=== PATIENT | male | born 1955 | race Caucasian/White ===

== ENCOUNTER 2016-07-01 11:39 | Inpatient (IN) | payer BC ==
--- NOTE | ~2016-07-01 | CN ---
Consultation Report [facility] [address] [place]. [address] NAME: JUAN GAY : 55 STATUS : ADM Heather PAT#: [id number] AGE: 61 ADM/REG DATE : 07/01/16 MR#: [id number] REPORT SERV DATE: 07/01/16 DICTATED BY: PAOLO AL DATE: 07/01/16 REPORT STATUS : Draft TRANSCRIBED BY: MODL DATE: 07/01/16 CONSULT DATE OF CONSULTATION: REASON: Volume overload and chronic kidney disease. HISTORY OF PRESENT ILLNESS: This is a very pleasant 61-year-old male patient, followed in our office by Dr. Suad Samuel. He was seen today in followup by Henrietta Villatoro, nurse practitioner, and has had a recent increase in diuretic burden. He is known to have a cirrhotic liver and has difficulty maintaining a reasonable diuresis. The patient has, over the last [id number] weeks, had worsening lower extremity edema extending from his feet distally up to his knees. He was recently increased on his torsemide but has continued to have worsening lower extremity edema to the point of painful ambulation. The patient's edema does not extend into his thighs, abdomen, nor groin area. He has recently seen Dr. Kurnal Elizabeth in followup whom he follows for his cirrhosis. The only modification undertaken at that recent followup, according the patient, was a modification of his lactulose coverage. The patient has also had some recent difficulty with a worsening cancer diagnosis of his 's. The patient states that her known cancer has metastasized to other areas and her long-term prognosis is poor. She has had recent followups and evaluations in the outpatient setting. On the days of appointments, the patient has reluctantly held his diuretics as well as his lactulose due to obvious needs for restrooms during treatment phases with these medications. He is lying in bed, awake, in a stretcher this afternoon, awake, alert and oriented. No complaints of chest pain. No nausea, vomiting, or diarrhea. PAST MEDICAL HISTORY: Positive for chronic kidney disease stage 3, followed by Dr. Suad Samuel. Baseline creatinine appears to be approximately 1.4 to 1.8. Most recent creatinine on 07/01/2016, at 2.3 with a GFR of 31 mL/minute. History is also positive for cirrhosis of the liver, followed by Dr. Krunal Elizabeth with recent followup approximately two weeks ago with modification of the lactulose pattern according to the patient. History is also significant for bicuspid aortic defect, gout, left chronic knee pains, diabetes mellitus x15 years, depression, anemia hypertension, obstructive sleep apnea with CPAP usage, hyperlipidemia, chronic bilateral pedal edema, history of hematuria, colon polyps, and some unnamed genetic heart disease. He has also required frequent blood transfusions and now has a Rh positive lab test according to previous documentation in September 2015. REVIEW OF SYSTEMS: Completed. Please see HPI for pertinent details. SOCIAL HISTORY: No ETOH. No illicit drugs. Remote tobacco use by history. FAMILY HISTORY: Noncontributory and not reviewed during this consultation and dictation. HOME MEDICATIONS: Currently unavailable as they have not gathered by Pharmacy. Consultation Report [place] [id number] [facility] [place]. [address] NAME: JUAN GAY : 55 STATUS : ADM Heather PAT#: [id number] AGE: 61 ADM/REG DATE : 07/01/16 MR#: [id number] REPORT SERV DATE: 07/01/16 DICTATED BY: PAOLO AL DATE: 07/01/16 REPORT STATUS : Draft TRANSCRIBED BY: NICHELLE DATE: 07/01/16 ALLERGIES: CURRENTLY UNAVAILABLE THEY HAVE NOT GATHERED BY PHARMACY. PHYSICAL EXAMINATION: VITAL SIGNS: Blood pressure 146/66, he is 99% on room air, heart rate is 77 beats per minute and regular, respiratory rate as at 18, and temperature is at 99.2. GENERAL: He is awake, alert, and oriented x3. No acute distress, lying in bed during evaluation. HEENT: Normocephalic and atraumatic. Normal ocular movements. No scleral icterus. No conjunctival pallor is appreciated. NECK: Supple without thyromegaly. No JVD. CHEST: Shows positive S1 and S2. No rubs or gallops. LUNGS: Clear to auscultation throughout with normal expansion and effort bilaterally. GI: Shows a rounded obese abdomen, nonfirm. No overt evidence of ascites to examination. : Examination is deferred. EXTREMITIES: Show positive pulses to all four extremities. He has 2+ to 3+ bilateral lower extremity edema extending proximally from his feet to his knees, some redness to his lower extremities but no certain signs of cellulitis or infection. NEUROLOGIC: He appears to be grossly intact. Nonfocal. SKIN: Warm, dry, and intact to visualized surfaces. No rash, lesions, or ecchymosis. He does have some redness to his lower extremities as listed above. PSYCHIATRIC: He is of appropriate mood and affect. LABORATORY DATA: Pertinent laboratories and imaging to this evaluation, laboratories at [facility] currently remain pending with the exception of his albumin at 2.7, direct bilirubin at 1.6, indirect at 1.3, alkaline phos of 277, ALT and AST 23 and 42, total protein 7.6. Remainder of his labs have come from his office visit today at [facility] with creatinine at 2.3, GFR of 31 mL/minute, sodium 140, potassium 3.2, chloride 95, glucose 159, calcium 9.0, phosphorus 4.4, and BUN is 77.3. Previous urinalysis would indicate that he has been negative for proteinuria in November and December of 2015. Previous urinalysis in August 2015 did elicit 1+ proteinuria. Yppralj-gf-memgongfwy ratio, most recently quantified 06/24/2016, at 0.482 deciliters. IMPRESSION AND PLAN: This is a chronic kidney disease stage 3 patient with known cirrhotic liver difficulty with volume overload with worsening diuretic burden over the last two-to- three weeks with intermittent compliance with treatment due to recent medical issues with his . He has failed p.o. diuretic attempts in the outpatient setting and is now admitted with the assistance of the hospitalist service to [facility] for assistance with diuresis rather. We will provide assistance with IV Bumex pulse dosing as well as albumin to assist in mobilization of the fluid as his albumin is significantly depressed. He has recently seen Dr. Krunal Elizabeth and has not had recent modification of treatment or worsening symptoms and I do not see clinical reasoning to request Dr. Elizabeth's evaluation at this point. Place him on strict I's and O's and daily weights. Follow them closely with serial laboratories and modify treatment plan based on the clinical presentation, patient laboratory results, further consultation with renal attending. We appreciate the assistance of the Hospitalist Service in augmenting care and providing assistance with this patient. Consultation Report [facility] [address] [place]. [address] NAME: JUAN GAY : 55 STATUS : ADM Heather PAT#: [id number] AGE: 61 ADM/REG DATE : 07/01/16 MR#: [id number] REPORT SERV DATE: 07/01/16 DICTATED BY: PAOLO AL DATE: 07/01/16 REPORT STATUS : Draft TRANSCRIBED BY: NICHELLE DATE: 07/01/16 DICTATED BY: Juan Ramon Overton NP JR/NICHELLE Paolo Al M.D. / [id number] CC: Juan Marquez Jr, MD
--- NOTE | ~2016-07-01 | DS ---
Discharge Summary [facility] [address] [facility] [place]. [address] NAME: ROSEMARY GAY : 55 STATUS : DIS IN PAT#: [id number] AGE: 61 ADM/REG DATE : 07/01/16 MR#: [id number] REPORT SERV DATE: 07/03/16 DICTATED BY: TALISHA WELLS DATE: 07/03/16 REPORT STATUS : Draft TRANSCRIBED BY: MODL DATE: 07/03/16 ADMISSION DATE: 07/01/2016 DISCHARGE DATE: 07/03/2016 CONSULTANTS: Dr. Pilo Al, Nephrology. DISCHARGE DIAGNOSES: 1. Volume overload. 2. Nonalcoholic steatohepatitis with previous history of hepatic encephalopathy and pancytopenia currently. 3. Acute kidney injury, superimposed on stage 3 chronic kidney disease. 4. History of bicuspid aortic valve. 5. Diabetes mellitus type 2 with last A1c of 7.2% on 02/2016. 6. Solitary kidney. 7. History of major depression. 8. Obesity with body mass index of 39.7. 9. Obstructive sleep apnea, on nocturnal CPAP. 10.History of gout. 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 Suad Samuel and there was concern that his leg edema was significantly worse, so they recommended he come into the hospital for inpatient IV diuretics. The patient was admitted to our inpatient service and placed on a 2 g sodium diet. He tells me that he follows an extremely low sodium diet at home. I talked with him about the importance of doing daily weight. I told him to contact his kidney or liver specialists if his weight goes up more than 4 pounds in two days. He was given albumin and Lasix intravenously, then Bumex intravenously. He had potassium replacement as needed. Nephrology thinks he is improved enough and I agree his peripheral edema is significantly better. They have advised addition of spironolactone 50 mg daily, and to use his metolazone only on a p.r.n. basis, and to follow up at their office on Thursday or Thursday the week following his discharge. He is ambulatory. No shortness of breath. He is clear mentally. He is calm, well oriented, no asterixis that I can witness. DISCHARGE MEDICATIONS: Allopurinol 300 mg daily, Demadex 100 mg twice a day, metolazone 5 mg daily only to be taken if he has significantly worsened leg edema, vitamin D 1000 units daily, iron sulfate 325 mg t.i.d., Flonase nasal spray daily, he uses a NovoLog sliding scale at home, he uses Toujeo SoloStar 12 units at bedtime, lactulose 30 mL q.i.d., omeprazole 20 mg daily, rifaximin 550 mg b.i.d., Zoloft 50 mg daily, spironolactone 50 mg daily, KCl 20 mEq p.o. daily, Tylenol he takes 500 mg once a day p.r.n. I spent 32 minutes today with the patient and with his discharge plan. Discharge Summary [address] [address] NAME: ROSEMARY GAY : 55 STATUS : DIS IN PAT#: [id number] AGE: 61 ADM/REG DATE : 07/01/16 MR#: [id number] REPORT SERV DATE: 07/03/16 DICTATED BY: TALISHA WELLS DATE: 07/03/16 REPORT STATUS : Draft TRANSCRIBED BY: NICHELLE DATE: 07/03/16 [facility]/NICHELLE Talisha Wells M.D. / [id number] CC: Heath Sanchez MD Lindsay C Crawford, M.D. Chirag Patel, M.D.
--- NOTE | ~2016-07-01 | HP ---
History And Physical [place] [place]. [address] NAME: JUAN GAY : 55 STATUS : ADM Heather PAT#: [id number] AGE: 61 ADM/REG DATE : 07/01/16 MR#: [id number] REPORT SERV DATE: 07/01/16 DICTATED BY: CHELSY DYER DATE: 07/01/16 REPORT STATUS : Draft TRANSCRIBED BY: MODByron DATE: 07/01/16 DATE OF ADMISSION: 07/01/2016 CHIEF COMPLAINT: Lower extremity edema. HISTORY OF PRESENT ILLNESS: The patient is a very pleasant 61-year-old white male. He has a long-standing history of cirrhosis secondary to nonalcoholic steatohepatitis. He also has a history of CKD with baseline creatinine running about 1.5 to 1.8. The patient apparently had some increase in his lower extremity edema. He was seen in the [facility] approximately 1 week ago. He had his Demadex increased from 80 to 100 mg b.i.d. and metolazone was added. He lost about 7 pounds but continued to have lower extremity edema. He went in today for followup. His creatinine had gone from 1.5 to 2.3 and they recommended he proceed to the ER for admission. He is not really having any other issues. Just prior to the onset of his increased edema, he had been holding his diuretics to take his to the doctor and various appointments as she is suffering from terminal breast cancer. He also was on an increased dose of lactulose just prior to the onset of increased edema when they cut his lactulose in half. He states his fluid started to accumulate more significantly. He does not have any other complaints today, really just the lower extremity edema. PAST MEDICAL HISTORY: 1. CKD, baseline creatinine 1.5 to 1.8. 2. Bicuspid aortic valve. 3. Cirrhosis secondary to nonalcoholic steatohepatitis. 4. Diabetes mellitus. 5. Depression. 6. Colon polyps. 7. Anemia. 8. Hypertension. 9. MISTY, on CPAP. 10.Hyperlipidemia. 11.Hepatic encephalopathy. 12.Solitary kidney since childhood. 13.Some type of genetic kidney defect. 14.Rh positive. 15.Obesity. 16.Gout. SOCIAL HISTORY: He does not drink or smoke. He lives with his . He is currently disabled. His has stage IV terminal breast cancer. FAMILY HISTORY: Mom had lung cancer. Father had hypertension, diabetes, skin cancer, and prostate cancer. He has a sister with MISTY and he has other siblings with diabetes and hypertension. PAST SURGICAL HISTORY: History And Physical [address] [place]. [address] NAME: JUAN GAY : 55 STATUS : ADM Heather PAT#: [id number] AGE: 61 ADM/REG DATE : 07/01/16 MR#: [id number] REPORT SERV DATE: 07/01/16 DICTATED BY: CHELSY DYER DATE: 07/01/16 REPORT STATUS : Draft TRANSCRIBED BY: NICHELLE DATE: 07/01/16 1. Left nephrectomy. 2. Left eye surgery. 3. Thyroid surgery. 4. Liver biopsy. HOME MEDICATIONS: Reviewed and attached. REVIEW OF SYSTEMS: Full 10-point review of systems obtained. Pertinent positives already mentioned in the HPI. PHYSICAL EXAMINATION: VITAL SIGNS: Blood pressure 122/65, temperature 98.2, pulse 77, respiratory rate 18, and sats 100. GENERAL: Well-developed white male, in no obvious distress. HEENT: Normocephalic, atraumatic. Throat is clear. NECK: Supple. HEART: Regular rate and rhythm. LUNGS: Grossly clear. ABDOMEN: Soft, nontender, nondistended. EXTREMITIES: Warm and dry. He does have about 2+ edema up to about the knee. His pulses are 2+ at the feet. SKIN: His skin is slightly erythematous. He does appear to be slightly jaundiced. NEUROLOGIC: He is alert. He is oriented to person, place, and time. Speech is intact. He has symmetrical strength and tone in all four extremities. LAB AND X-RAY STUDIES: From the outpatient clinic, his creatinine was 2.3. Chest x-ray shows no acute process. These are the only labs I have so far. Albumin was 2.7, total bilirubin is 2.9, alkaline phosphatase 277, ALT 23, and AST 42. All other labs are pending. ASSESSMENT/PLAN: 1. Acute on chronic kidney disease with increasing lower extremity edema despite increasing diuretics. We will attempt to give him some albumin and follow with Lasix to see if we can get additional fluid off. We will have Nephrology see him in consultation. We will monitor in's and out's, daily weights, and put him on a sodium- restricted diet. Hopefully, with these efforts, his edema will improve. It is going to be difficult to really manage his fluids given his ongoing cirrhosis and chronic kidney disease. 2. Cirrhosis with history of hepatic encephalopathy. We will continue his lactulose and his rifaximin. We will be judicious about his diuretic use and watch his fluid status closely. 3. History of gout, on allopurinol. 4. Diabetes mellitus. Continue home insulin regimen plus sliding scale. 5. Anemia, chronic, stable. 6. History of hypertension, chronic, stable. 7. MISTY stable. 8. Deep venous thrombosis prophylaxis with subcutaneous heparin. 9. Disposition pending above aforementioned plan and workup. History And Physical [address] [address] NAME: JUAN GAY : 55 STATUS : ADM Heather PAT#: [id number] AGE: 61 ADM/REG DATE : 07/01/16 MR#: [id number] REPORT SERV DATE: 07/01/16 DICTATED BY: CHELSY DYER DATE: 07/01/16 REPORT STATUS : Draft TRANSCRIBED BY: NICHELLE DATE: 07/01/16 [facility]/NICHELLE Chelsy Dyer M.D. / [id number] CC: Juan Marquez Jr, MD David Castrilli, MD Lindsay C Crawford, M.D. Chirag Patel, M.D.
[~2016-07-01 11:39] MED LIST: DEMA20 PO; DIABET2.5 PO; DIABETA5 PO; FEOSOL200 MG PO; FERRETTS325 MG PO; GLUCOPHAGE1000 MG PO; HCTZ25B PO; HYDROCHLOROT12.5 MG PO; IBU400 PO; IMOD PO; IRON160 MG PO; LACT30UDL PO; MAX25 PO; MULTIVIT/MIN PO; NOVOPEN SC; PRILO PO; PRIN2.5 PO; PRIN5 PO; SPIRO50 PO; TOUJEO; TOUJEO SC; VITAMIN B-121000 MC1 SL; XIFAXAN550 MG; Z300 PO; ZOL50 PO; ZOLOFT25 MG PO
[2016-07-01] MEDS ORDERED: PRILO PO (11:57)
[2016-07-01] MEDS ORDERED: Z5 PO (11:58)
[2016-07-01] MEDS ORDERED: ZOL50 PO (11:58)
[2016-07-01] MEDS ORDERED: XIFAXAN550 MG PO (11:58)
[2016-07-01] MEDS ORDERED: FERROUS SULF325 M1 PO (11:58)
[2016-07-01] MEDS ORDERED: NOVOLOG SC (11:59)
[2016-07-01] MEDS ORDERED: K500 PO (12:00)
[2016-07-01] MEDS ORDERED: DEMA100 PO (12:00)
[2016-07-01] MEDS ORDERED: ENULOSE PO (12:01)
[2016-07-01] MEDS ORDERED: TOUJEO SC (12:01)
[2016-07-01] MEDS ORDERED: KLOR-CON M2020 MEQ PO (12:01)
[2016-07-01] MEDS ORDERED: Z300 PO (12:01)
[2016-07-01] MEDS ORDERED: ACET500CAP PO (12:02)
[2016-07-01] MEDS ORDERED: FLONASE NAS (12:02)
[2016-07-01] MEDS ORDERED: VITAMIN D1000 UNI1 PO (12:02)
[2016-07-01 12:09] LABS: ALBUMIN 2.7 G/DL (3.5-5.0); ALKALINE PHOSPHATASE 277 U/L (45-117); DIRECT BILIRUBIN 1.6 MG/DL (0.0-0.4); INDIRECT BILIRUBIN(NOT ORDER) 1.3 MG/DL (0.1-0.9); SGOT(AST) 42 U/L (5-40); SGPT(ALT) 23 U/L (5-65); TOTAL BILIRUBIN 2.9 MG/DL (0-1.2); TOTAL PROTEIN 7.6 G/DL (6.0-8.5)
[2016-07-01 15:44] LABS: BASOPHILS 0.6 %; BASOPHILS ABSOLUTE 0.03 10/3/uL (0.0-0.16); EOSINOPHILS 2.8 %; EOSINOPHILS ABSOLUTE 0.15 10/3/uL (0.0-0.53); HEMATOCRIT 28.8 % (40.0-51.0); HEMOGLOBIN 9.8 g/dL (13.6-17.8); IMMATURE GRANULOCYTES 0.2 %; IMMATURE GRANULOCYTES ABSOLUTE 0.01 10/3/uL (0.0-0.11); LYMPHOCYTES 15.6 %; LYMPHOCYTES ABSOLUTE 0.84 10/3/uL (0.67-4.30); MANUAL DIFF NO %; MEAN CORPUSCULAR HEMOGLOB 34.1 pg (26.0-34.0); MEAN CORPUSCULAR VOLUME 100.3 fL (80-100); MEAN PLATELET VOLUME 12.5 fL (9.2-13.0); MONOCYTES ABSOLUTE 0.27 10/3/uL (0.21-1.20); NEUTROPHILS 75.8 %; PLATELET COUNT 82 10/3/uL (150-400); RBC DISTRIBUTION WIDTH 15.7 % (12.0-16.0); RED CELL COUNT 2.87 10/6/uL (4.7-6.1); WHITE BLOOD CELLS 5.4 10/3/uL (4.5-10.5)
[2016-07-01 15:54] LABS: CALCIUM, SERUM 8.9 MG/DL (8.5-10.4); CHLORIDE, SERUM 94 MMOL/L (96-112); CO2 (CARBON DIOXIDE) 31 MMOL/L (24-34); GFR AFRICAN AMERICAN 33 ML/MIN (>=60); GFR NON AFRICAN AMERICAN 28 ML/MIN (>=60); GLUCOSE, SERUM 228 MG/DL (60-99); SODIUM, SERUM 136 MMOL/L (135-148)
[2016-07-01 15:55] LABS: BUN (BLOOD UREA NITROGEN) 83 MG/DL (6-23); CREATININE 2.38 MG/DL (0.70-1.30); POTASSIUM, SERUM 2.6 MMOL/L (3.5-5.3)
[2016-07-01 15:58] LABS: INTERNATIONAL NORMAL RATI 1.5 UNITS (-)
[2016-07-01 16:06] LABS: A/G RATIO 0.6 (0.7-1.9)
[2016-07-01 16:07] LABS: GLOBULIN 4.9 G/DL (2.5-4.1)
[2016-07-01 22:30] LABS: CREATININE, URINE 36.3 MG/DL
[2016-07-02 04:12] LABS: BASOPHILS 0.6 %; BASOPHILS ABSOLUTE 0.02 10/3/uL (0.0-0.16); EOSINOPHILS 2.7 %; EOSINOPHILS ABSOLUTE 0.09 10/3/uL (0.0-0.53); HEMATOCRIT 23.9 % (40.0-51.0); LYMPHOCYTES 18.7 %; LYMPHOCYTES ABSOLUTE 0.62 10/3/uL (0.67-4.30); MANUAL DIFF NO %; MEAN CORPUS HGB CONC 33.5 g/dL (32.0-36.0); MEAN CORPUSCULAR HEMOGLOB 33.3 pg (26.0-34.0); MEAN CORPUSCULAR VOLUME 99.6 fL (80-100); MEAN PLATELET VOLUME 10.6 fL (9.2-13.0); MONOCYTES 8.2 %; MONOCYTES ABSOLUTE 0.27 10/3/uL (0.21-1.20); NEUTROPHILS 69.8 %; NEUTROPHILS ABSOLUTE 2.31 10/3/uL (2.02-8.40); PLATELET COUNT 53 10/3/uL (150-400); RBC DISTRIBUTION WIDTH 15.6 % (12.0-16.0); WHITE BLOOD CELLS 3.3 10/3/uL (4.5-10.5)
[2016-07-02 04:30] LABS: ALBUMIN 2.7 G/DL (3.5-5.0); BUN (BLOOD UREA NITROGEN) 83 MG/DL (6-23); CALCIUM, SERUM 8.8 MG/DL (8.5-10.4); CHLORIDE, SERUM 99 MMOL/L (96-112); CO2 (CARBON DIOXIDE) 31 MMOL/L (24-34); CREATININE 2.04 MG/DL (0.70-1.30); GFR AFRICAN AMERICAN 40 ML/MIN (>=60); GFR NON AFRICAN AMERICAN 34 ML/MIN (>=60); PHOSPHORUS, SERUM 3.6 MG/DL (2.5-4.5); PLATELET ESTIMATE ADQ (ADEQUATE); RBC MORPHOLOGY NORM (NORMAL); SODIUM, SERUM 140 MMOL/L (135-148)
[2016-07-02 04:37] LABS: GLUCOSE, SERUM 142 MG/DL (60-99); POTASSIUM, SERUM 2.6 MMOL/L (3.5-5.3)
[2016-07-02 14:28] LABS: POTASSIUM, SERUM 2.8 MMOL/L (3.5-5.3)
[2016-07-03 05:58] LABS: BASOPHILS ABSOLUTE 0.03 10/3/uL (0.0-0.16); EOSINOPHILS ABSOLUTE 0.09 10/3/uL (0.0-0.53); HEMATOCRIT 23.8 % (40.0-51.0); HEMOGLOBIN 8.1 g/dL (13.6-17.8); LYMPHOCYTES 23.6 %; LYMPHOCYTES ABSOLUTE 0.71 10/3/uL (0.67-4.30); MEAN CORPUSCULAR HEMOGLOB 34.2 pg (26.0-34.0); MEAN CORPUSCULAR VOLUME 100.4 fL (80-100); MONOCYTES 7.3 %; MONOCYTES ABSOLUTE 0.22 10/3/uL (0.21-1.20); NEUTROPHILS 65.1 %; NEUTROPHILS ABSOLUTE 1.96 10/3/uL (2.02-8.40); RBC DISTRIBUTION WIDTH 15.8 % (12.0-16.0); RED CELL COUNT 2.37 10/6/uL (4.7-6.1)
[2016-07-03 05:59] LABS: PLATELET COUNT 47 10/3/uL (150-400)
[2016-07-03 06:00] LABS: MANUAL DIFF NO %
[2016-07-03 06:13] LABS: INTERNATIONAL NORMAL RATI 1.6 UNITS (-); PROTIME (NOT ORD) 18.5 SEC (12.0-14.5)
[2016-07-03 06:16] LABS: BUN (BLOOD UREA NITROGEN) 83 MG/DL (6-23); CALCIUM, SERUM 9.4 MG/DL (8.5-10.4); CHLORIDE, SERUM 100 MMOL/L (96-112); CO2 (CARBON DIOXIDE) 27 MMOL/L (24-34); CREATININE 1.95 MG/DL (0.70-1.30); GFR AFRICAN AMERICAN 42 ML/MIN (>=60); GFR NON AFRICAN AMERICAN 36 ML/MIN (>=60); PHOSPHORUS, SERUM 2.9 MG/DL (2.5-4.5); SGOT(AST) 35 U/L (5-40); SGPT(ALT) 22 U/L (5-65); SODIUM, SERUM 138 MMOL/L (135-148); TOTAL BILIRUBIN 2.8 MG/DL (0-1.2); TOTAL PROTEIN 7.1 G/DL (6.0-8.5)
[2016-07-03 06:17] LABS: ANISOCYTOSIS 1+ (5-10/OIF) (0-5/OIF); MACROCYTES 1+ (5-10/OIF) (0-5/OIF); RBC MORPHOLOGY ABN (NORMAL)
[2016-07-03 06:18] LABS: ALBUMIN 3.4 G/DL (3.5-5.0); ALKALINE PHOSPHATASE 161 U/L (45-117); DIRECT BILIRUBIN 1.3 MG/DL (0.0-0.4); GLUCOSE, SERUM 172 MG/DL (60-99); INDIRECT BILIRUBIN(NOT ORDER) 1.5 MG/DL (0.1-0.9); POTASSIUM, SERUM 3.8 MMOL/L (3.5-5.3)
[2016-07-03] MEDS ORDERED: SPIRO50 PO (09:53)
[2016-10-06] MEDS ORDERED: HUMALOG SC ×2 (22:29)
[2016-10-06] MEDS ORDERED: TOUJEO SC (22:29)
[2016-10-06] MEDS ORDERED: Z300 PO (22:30)
[2016-10-06] MEDS ORDERED: FERROUS SULF325 M1 PO (22:30)
[2016-10-06] MEDS ORDERED: FLUCON2 PO (22:31)
[2016-10-06] MEDS ORDERED: XIFAXAN550 MG PO (22:32)
[2016-10-06] MEDS ORDERED: ZOL50 PO (22:32)
[2016-10-06] MEDS ORDERED: CEFAZ1 IV (22:33)
[2016-10-06] MEDS ORDERED: PRILOSEC40 MG PO (22:34)
[2016-10-06] MEDS ORDERED: ENULOSE PO (22:34)
[2016-10-06] MEDS ORDERED: PR25 PO (22:35)
[2016-10-10] MEDS ORDERED: CEFAZ1 IV (13:45)
== END 2016-07-03 10:21 | disposition home or self-care (01) | DRG 641 ==
LOC: ER 11:39 → CDU1 11:49 → CDU2 11:53 → 2SO 07-02 17:23
PROVIDERS: Emergency Medicine; Internal Medicine
DX: E87.70 Fluid overload, unspecified (principal); E11.22 Type 2 diabetes mellitus with diabetic chronic kidney disease; N17.9 Acute kidney failure, unspecified; Q23.1 Congenital insufficiency of aortic valve; K74.60 Unspecified cirrhosis of liver; N18.3 Chronic kidney disease, stage 3 (moderate); Z90.5 Acquired absence of kidney; Z99.81 Dependence on supplemental oxygen; K76.0 Fatty (change of) liver, not elsewhere classified; F32.9 Major depressive disorder, single episode, unspecified; I12.9 Hypertensive chronic kidney disease with stage 1 through stage 4 chronic kidney disease, or unspecified chronic kidney disease; G47.33 Obstructive sleep apnea (adult) (pediatric); E66.9 Obesity, unspecified; E78.5 Hyperlipidemia, unspecified; E87.6 Hypokalemia; Z68.39 Body mass index [BMI] 39.0-39.9, adult
CPT/HCPCS: 71010; 80053; 80069; 80076; 82570; 82962; 83735; 84132; 84156; 85025; 85610; 85730; 99285; A9270-GY; P9047